=== PATIENT | female | born 1950 | race Hispanic/Latino ===

== ENCOUNTER → 2018-07-12 | Outpatient (CLI) | payer OTHER ==
--- NOTE | 2018-07-12 08:26 | Diagnostic Imaging Report ---
EXAM: US ABDOMEN COMPLETE DATE: 07/12/2018 6:55 AM INDICATION: Epigastric pain, nausea, vomiting COMPARISON: None TECHNIQUE: Transverse and longitudinal luna scale and color doppler sonographic images of the upper abdomen were obtained. FINDINGS: LIVER 13.8 cm in the right midclavicular line. Normal echogenicity, normal contour, no masses. SPLEEN 8.2 cm in maximum diameter. Normal echogenicity, no masses. GALLBLADDER Multiple shadowing echogenic calculi. No wall thickening or pericholecystic fluid. Negative sonographic Rai's sign. BILE DUCTS No intra nor extra-hepatic biliary dilation. Common bile duct measures 0.4 cm PANCREAS: Visualized portions are normal. RIGHT KIDNEY: 10.3 cm Echogenicity: Normal Collecting System: No hydronephrosis Stones: None Cyst/Mass: None LEFT KIDNEY: 11.1 cm Echogenicity: Normal Collecting System: No hydronephrosis Stones: None Cyst/Mass: None VESSELS: Aorta: Nonaneurysmal Inferior Vena Cava: Patent Main Portal Vein: 0.8 cm, normal size with hepatopetal flow. FREE FLUID: None IMPRESSION: Cholelithiasis without sonographic findings of acute cholecystitis. Signed by: Dr. Oumar Hamlin M.D. on 07/12/2018 8:23 AM
== END ==
LOC: US 06:35
PROVIDERS: ATTEND Internal Medicine Gastroenterology
DX: R10.13 Epigastric pain (principal); R11.2 Nausea with vomiting, unspecified; I10 Essential (primary) hypertension; E66.3 Overweight; Z71.3 Dietary counseling and surveillance
CPT/HCPCS: 76700